=== PATIENT | male | born 1995 | race Two or more races ===

== ENCOUNTER 2020-05-16 14:25 | Inpatient (IN) | payer OTHER ==
--- NOTE | 2020-05-16 14:56 | BHS.RME ---
Substance Use & Tx History - Substance Use History Heroin Substance amount: 3 bags Frequency of use: Daily Substance route: Inhalation (ex: sniffing or snorting) Date of Last Use: 05/15/20 Xanax Substance amount: 2 x 2 mg Frequency of use: Less than 3 times per week Substance route: Oral Date of Last Use: 03/17/20 Marijuana/Hashish Substance amount: 2 joints Frequency of use: Daily Substance route: Smoking Date of Last Use: 05/09/20 Nicotine Substance amount: 3 cigs Frequency of use: Daily Substance route: Smoking Date of Last Use: 05/16/20 - Last Treatment Date of last treatment: [facility] visit Physical/Psych/Mental Status - Behavior General Behavior: Decreased activity Eye Contact: Normal - Cooperativeness Cooperativeness: Cooperative - Thinking Thought Processes: Tight Thought content: Future oriented - Physical Health Problems Is patient presently having any pain?: No Does patient presently have any injuries (include location): No Does patient currently have a fever: No COWS - Scale Resting Pulse: 0= [place] 80 or Below (Recommend Rehab admit, rapid COVID) Sweatin= No chills or Flushing Restless Observation: 0= Sits Still Pupil Size: 0= Normal to Room Light Bone or Joint Aches: 0= None Runny Nose/ Eye Tearin= None GI Upset > 30mins: 0= None Tremor Observation: 0= None Yawning Observation: 0= None Anxiety or Irritability: 1=Feels Anxious/Irritable Goose Flesh Skin: 0=Smooth Skin COWS Score: 1
[2020-05-16 17:44] VITALS: BMI 29.2
--- NOTE | 2020-05-16 17:49 | HP ---
CIWA Score - Admission Criteria OASAS Guidelines: Admission for Medically Managed Detox: Requires at least one of the followin. CIWA greater than 12 2. Seizures within the past 24 hours 3. Delirium tremens within the past 24 hours 4. Hallucinations within the past 24 hours 5. Acute intervention needed for co occurring medical disorder 6. Acute intervention needed for co occurring psychiatric disorder 7. Severe withdrawal that cannot be handled at a lower level of care (continued vomiting, continued diarrhea, abnormal vital signs) requiring intravenous medication and/or fluids 8. Admission ROS S - HPI Chief Complaint: Seeking admission to Rehab. Allergies/Adverse Reactions: Allergies Allergy/AdvReac Type Severity Reaction Status Date / Time No Known Allergies Allergy Verified 05/16/20 15:04 History of Present Illness: 24 years old male with a history of heroin, Xanax and marijuana dependence is seeking admission to Rehab. This is his first admission to [facility] and patient reports prior admission to [facility]. He denies medical history, psych. history and suicidal ideation at this time. His urine is positive for Buprenorphine but he reports that he bought that from the street. His SARS COV_2 PCR is negative Req. [id number]. Exam Limitations: No Limitations - Ebola screening Have you traveled outside of the country in the last 21 days: No Have you had contact with anyone from an Ebola affected area: No Have you been sick,other than usual withdrawal symptoms: No Do you have a fever: No - Review of Systems Constitutional: No Symptoms Reported EENT: reports: No Symptoms Reported Respiratory: reports: No Symptoms reported Cardiac: reports: No Symptoms Reported GI: reports: No Symptoms Reported : reports: No Symptoms Reported Musculoskeletal: reports: No Symptoms Reported Integumentary: reports: No Symptoms Reported Neuro: reports: No Symptoms reported Endocrine: reports: No Symptoms Reported Hematology: reports: Bleeding Diathesis Psychiatric: reports: No Sypmtoms Reported, Mood/Affect Appropiate, Orientated x3 Other Systems: Reviewed and Negative Patient History - Patient Medical History Hx Anemia: No Hx Asthma: No Hx Chronic Obstructive Pulmonary Disease (COPD): No Hx Cancer: No Hx Cardiac Disorders: No Hx Congestive Heart Failure: No Hx Hypertension: No Hx Hypercholesterolemia: No Hx Pacemaker: No HX Cerebrovascular Accident: No Hx Seizures: No Hx Diabetes: No Hx Gastrointestinal Disorders: No Hx Liver Disease: No Hx Genitourinary Disorders: No Hx Sexually Transmitted Disorders: No Hx Renal Disease (ESRD): No Hx Thyroid Disease: No Hx Human Immunodeficiency Virus (HIV): No (Negative 2019) Hx Hepatitis C: No Hx Depression: No Hx Suicide Attempt: No Hx Bipolar Disorder: No Hx Schizophrenia: No - Patient Surgical History Past Surgical History: No - PPD History Previous Implant?: Yes Documented Results: Positive w/o proof Implanted On Prior R Admission?: No PPD to be Administered?: Yes - Reproductive History Patient is a Female of Child Bearing Age (11 -55 yrs old): No (Male) - Smoking Cessation Smoking history: Current every day smoker Have you smoked in the past 12 months: Yes Aproximately how many cigarettes per day: 2 Hx Chewing Tobacco Use: No Initiated information on smoking cessation: Yes 'Breaking Loose' booklet given: 05/16/20 - Substance & Tx. History Hx Alcohol Use: No Hx Substance Use: Yes Substance Use Type: Opiates Hx Substance Use Treatment: Yes ([facility]) - Substances abused Heroin Substance route: Inhalation Frequency: Daily Amount used: 3 bags Age of first use: 17 Date of last use: 05/15/20 Alprazolam (Xanax) Substance route: Oral Frequency: 1-2 times per week Amount used: 4mg Age of first use: 17 Date of last use: 03/17/20 Marijuana/Hashish Substance route: Smoking Frequency: Daily Amount used: 2 joints Age of first use: 16 Date of last use: 05/09/20 Admission Physical Exam S - Vital Signs Vital Signs: Vital Signs - 24 hr 05/16/20 17:43 Temperature 97.5 F L Pulse Rate 58 L Respiratory 17 Rate Blood Pressure 130/78 - Physical General Appearance: Yes: Within Normal Limits HEENTM: Yes: Within Normal Limits Respiratory: Yes: Lungs Clear, Normal Breath Sounds, No Respiratory Distress Neck: Yes: Within Normal Limits Breast: Yes: Breast Exam Deferred Cardiology: Yes: Bradycardia Abdominal: Yes: Normal Bowel Sounds Genitourinary: Yes: Within Normal Limits Back: Yes: Normal Inspection Musculoskeletal: Yes: Within Normal Limits Extremities: Yes: Within Normal Limits Neurological: Yes: Within Normal Limits Integumentary: Yes: Within Normal Limits Lymphatic: Yes: Within Normal Limits - Diagnostic (1) Opioid dependence, uncomplicated Current Visit: Yes Status: Chronic (2) Cannabis dependence Current Visit: Yes Status: Chronic (3) Benzodiazepine dependence Current Visit: Yes Status: Chronic (4) Nicotine dependence Current Visit: Yes Status: Chronic Cleared for Admission S - Detox or Rehab [facility] Level of Care: Observation Bed Claeared for Rehab Admission: Yes Breathalyzer - Breathalyzer Breathalyzer: 0 Urine Drug Screen - Test Device Lot number: [id number] Expiration date: 04/03/22 - Control Is test valid?: Yes - Results Drug screen NEGATIVE: No Urine drug screen results: BUP-Suboxone Inpatient Rehab Admission - Rehab Decision to Admit Inpatient rehab admission?: Yes - Initial Determination Are CD services needed?: No Free of communicable disease: Yes Not in need of hospitalization: Yes - Rehab Admission Criteria Previous failed treatment: Yes Poor recovery environment: Yes Comorbidities: No Lacks judgement: No Patient is meeting Inpatient Rehab admission criteria:: Yes
[2020-05-16] MEDS ORDERED: MAG HYDROX/AL HYDROX/SIMETH 30 ML UNIT-DOSE CUP PO PRN (18:07)
[2020-05-16] MEDS ORDERED: IBUPROFEN 400 MG TABLET (FP) PO PRN (18:07)
[2020-05-16] MEDS ORDERED: P-EPHED 60MG/TRIPROLIDI 2.5MG TABLET PO PRN (18:07)
[2020-05-16] MEDS ORDERED: MAGNESIUM CITRATE 300 ML BOTTLE PO PRN (18:07)
[2020-05-16] MEDS ORDERED: LOPERAMIDE HCL 2 MG CAPSULE PO PRN (18:07)
[2020-05-16] MEDS ORDERED: ACETAMINOPHEN 325 MG TABLET (FP) PO PRN (18:07)
[2020-05-16] MEDS ORDERED: MAGNESIUM HYDROX 2400MG/30ML ORAL SUSPENSION 30 ML CUP PO PRN (18:07)
[2020-05-16] MEDS ORDERED: NICOTINE POLACRILEX 2 MG GUM BC PRN (18:07)
[2020-05-16] MEDS ORDERED: guaiFENesin 200 MG/10 ML 10 ML UNIT-DOSE CUPS PO PRN (18:07)
[2020-05-16] MEDS ORDERED: TUBERCULIN PPD 5 TU/0.1ML VIAL ID ONE (19:29)
[2020-05-16] MEDS: MELATONIN 5 MG TABLETS PO SCH (21:13)
[2020-05-16] MEDS: THIAMINE HCL 100 MG TABLET (FP) PO SCH (21:13)
--- NOTE | 2020-05-17 09:54 | EKG ---
Test Reason : Blood Pressure : / mmHG Vent. Rate : 046 BPM Atrial Rate : 046 BPM P-R Int : 166 ms QRS Dur : 100 ms QT Int : 422 ms P-R-T Axes : 056 053 051 degrees QTc Int : 369 ms SINUS BRADYCARDIA OTHERWISE NORMAL ECG NO PREVIOUS ECGS AVAILABLE Confirmed by ZENY BARRIOS MD ([id number]) on 05/17/2020 9:53:53 AM Referred By: Confirmed By:ZENY BARRIOS MD
[2020-05-17] MEDS: PRENATAL VITAMINS W/ FOLIC ACID TABLET (FP) PO SCH (10:17)
[2020-05-17] MEDS: NICOTINE 14 MG/24 HOURS TOPICAL PATCH TD SCH (10:17)
[2020-05-17 11:03] LABS: ALBUMIN 3.9 g/dl (3.4-5.0); BILIRUBIN,TOTAL 0.3 mg/dL (0.2-1); BLOOD UREA NITROGEN 11.8 mg/dL (7-18); CALCIUM 9.2 mg/dL (8.5-10.1); POTASSIUM 4.3 mmol/L (3.5-5.1); TOT PROT 7.2 g/dl (6.4-8.2)
[2020-05-17 11:09] LABS: HEMATOCRIT 44.4 % (35.4-49); HEMOGLOBIN 14.6 GM/dL (11.7-16.9); MCH 29.6 pg (25.7-33.7); MCHC 32.9 g/dl (32.0-35.9); MEAN CELL VOLUME 89.9 fl (80-96); MEAN PLT VOLUME 7.3 fl (7.5-11.1); PLATELET COUNT 283 K/MM3 (134-434); RBC 4.94 M/mm3 (4.00-5.60); WHITE BLOOD COUNT 5.4 K/mm3 (4.0-10.0)
[2020-05-17 11:38] LABS: SICKLE CELL SCREEN NEGATIVE (NEGATIVE)
--- NOTE | 2020-05-17 16:31 | PN ---
[facility] Progress Note Note: Pt is a 24 y/o male admitted to rehab from [facility]. Pt reports he took street suboxone for only one week, last was 4 mg yesterdaynd took heroin 2-3 bags on 05/15/20. Reports he was referred to [facility] from [facility]. States he has PCP Dr. Chang Mcqueen I [place], [place]. Pt's counselor requested to see pt who may benefit from Suboxone MAT. Surgical Scrub Technician met with pt who pt declined stating "I want to be all clean because I wanna go to [employer] so I can work". However, pt requested one or two doses of Suboxone " because I'm gonna get sick". Asked pt if he is having any withdrawal sx now and pt stated "I'm not sick yet". and that's it". Vital Signs - 24 hr 05/16/20 05/16/20 05/16/20 17:43 18:30 19:21 Temperature 97.5 F L 97.5 F L 97.3 F L Pulse Rate 58 L 58 L 61 Respiratory 17 17 18 Rate Blood Pressure 130/78 130/78 121/62 O2 Sat by Pulse Oximetry (%) 05/17/20 05/17/20 06:38 12:47 Temperature 97.7 F Pulse Rate 74 Respiratory 18 Rate Blood Pressure 119/60 O2 Sat by Pulse 98 99 Oximetry (%) Laboratory Tests 05/16/20 05/17/20 05/17/20 15:15 08:00 08:00 WBC 5.4 RBC 4.94 Hgb 14.6 Hct 44.4 MCV 89.9 MCH 29.6 MCHC 32.9 RDW 13.0 Plt Count 283 MPV 7.3 L Sickle Cell Screen Negative Sodium 138 Potassium 4.3 Chloride 101 Carbon Dioxide 33 H Anion Gap 4 L BUN 11.8 Creatinine 1.0 Est GFR (CKD-EPI)AfAm 123.27 Est GFR (CKD-EPI)NonAf 106.36 Random Glucose 90 Calcium 9.2 Total Bilirubin 0.3 AST 18 ALT 26 Alkaline Phosphatase 63 Total Protein 7.2 Albumin 3.9 Syphilis Serology SARS-CoV-2 (PCR) Negative 05/17/20 08:00 WBC RBC Hgb Hct MCV MCH MCHC RDW Plt Count MPV Sickle Cell Screen Sodium Potassium Chloride Carbon Dioxide Anion Gap BUN Creatinine Est GFR (CKD-EPI)AfAm Est GFR (CKD-EPI)NonAf Random Glucose Calcium Total Bilirubin AST ALT Alkaline Phosphatase Total Protein Albumin Syphilis Serology Non-reactive SARS-CoV-2 (PCR) Alert o x 3 nad oob ambulating with steady gait extremities;no edema, skin intact. Maintain safety increase po fluids Reminded pt to follow up with nurse for any discomfort.
[2020-05-17] MEDS: MELATONIN 5 MG TABLETS PO SCH (22:03)
[2020-05-17] MEDS: THIAMINE HCL 100 MG TABLET (FP) PO SCH (22:03)
[2020-05-18 06:54] VITALS: TEMP 97.3
[2020-05-18] MEDS: NICOTINE 14 MG/24 HOURS TOPICAL PATCH TD SCH (11:00)
[2020-05-18] MEDS: PRENATAL VITAMINS W/ FOLIC ACID TABLET (FP) PO SCH (11:00)
[2020-05-18] MEDS: MELATONIN 5 MG TABLETS PO SCH (21:13)
[2020-05-18] MEDS: THIAMINE HCL 100 MG TABLET (FP) PO SCH (21:13)
[2020-05-19] MEDS: PRENATAL VITAMINS W/ FOLIC ACID TABLET (FP) PO SCH (09:34)
[2020-05-19] MEDS: NICOTINE 14 MG/24 HOURS TOPICAL PATCH TD SCH (09:34)
[2020-05-19] MEDS: THIAMINE HCL 100 MG TABLET (FP) PO SCH (22:01)
[2020-05-19] MEDS: MELATONIN 5 MG TABLETS PO SCH (22:02)
[2020-05-20 02:11] LABS: PH,URINE 6.5 (5.0-8.0); URINE APPEARANCE CLEAR; URINE BILIRUBIN NEGATIVE (NEGATIVE); URINE COLOR YELLOW; URINE GLUCOSE (UA) NEGATIVE (NEGATIVE); URINE KETONE NEGATIVE (NEGATIVE); URINE LEUK ESTERASE NEGATIVE (NEGATIVE); URINE NITRITE NEGATIVE (NEGATIVE); URINE PROTEIN NEGATIVE (NEGATIVE); URINE UROBILINOGEN 0.2 mg/dL (0.2-1.0)
[2020-05-20 08:05] VITALS: BP 130/88; PULSE 46
[2020-05-20] MEDS: PRENATAL VITAMINS W/ FOLIC ACID TABLET (FP) PO SCH (09:58)
[2020-05-20] MEDS: NICOTINE 14 MG/24 HOURS TOPICAL PATCH TD SCH (09:58)
[2020-05-20] MEDS: MELATONIN 5 MG TABLETS PO SCH (21:16)
[2020-05-20] MEDS: THIAMINE HCL 100 MG TABLET (FP) PO SCH (21:16)
[2020-05-21] MEDS: NICOTINE 14 MG/24 HOURS TOPICAL PATCH TD SCH (11:24)
[2020-05-21] MEDS: PRENATAL VITAMINS W/ FOLIC ACID TABLET (FP) PO SCH (11:24)
--- NOTE | 2020-05-21 12:02 | DS ---
[facility] Rehab Discharge Summary - [facility] Rehab Discharge Summary Admission Date: 05/16/20 Discharge Date: 05/21/20 - History Present History: Cannabis dependence, Opioid dependence, Sedative dependence Pertinent Past History: Denies - Discharge Physical Exam Vital Signs: Vital Signs Temperature 97.3 F L 05/20/20 08:03 Pulse Rate 46 L 05/20/20 08:03 Respiratory Rate 16 05/20/20 08:03 Blood Pressure 130/88 05/20/20 08:03 O2 Sat by Pulse Oximetry (%) 98 05/21/20 06:41 General:Alert o x 3, WDWN male, nad, oob ambulating with steady gait,denies s/h/i cardiac;s1 s2, rrr lungs:ctab abdomen:soft, +bs,nt,nd MSK:Active ROM, all limbs; no edema Skin:no edema, skin intact. Pertinent Admission Physical Exam Findings: Unremarkable Laboratory Tests 05/16/20 05/17/20 05/17/20 15:15 08:00 08:00 WBC 5.4 RBC 4.94 Hgb 14.6 Hct 44.4 MCV 89.9 MCH 29.6 MCHC 32.9 RDW 13.0 Plt Count 283 MPV 7.3 L Sickle Cell Screen Negative Sodium 138 Potassium 4.3 Chloride 101 Carbon Dioxide 33 H Anion Gap 4 L BUN 11.8 Creatinine 1.0 Est GFR (CKD-EPI)AfAm 123.27 Est GFR (CKD-EPI)NonAf 106.36 Random Glucose 90 Calcium 9.2 Total Bilirubin 0.3 AST 18 ALT 26 Alkaline Phosphatase 63 Total Protein 7.2 Albumin 3.9 Urine Color Urine Appearance Urine pH Ur Specific [place] Urine Protein Urine Glucose (UA) Urine Ketones Urine Blood Urine Nitrite Urine Bilirubin Urine Urobilinogen Ur Leukocyte Esterase Syphilis Serology SARS-CoV-2 (PCR) Negative 05/17/20 05/19/20 08:00 08:30 WBC RBC Hgb Hct MCV MCH MCHC RDW Plt Count MPV Sickle Cell Screen Sodium Potassium Chloride Carbon Dioxide Anion Gap BUN Creatinine Est GFR (CKD-EPI)AfAm Est GFR (CKD-EPI)NonAf Random Glucose Calcium Total Bilirubin AST ALT Alkaline Phosphatase Total Protein Albumin Urine Color Yellow Urine Appearance Clear Urine pH 6.5 Ur Specific [place] 1.014 Urine Protein Negative Urine Glucose (UA) Negative Urine Ketones Negative Urine Blood Negative Urine Nitrite Negative Urine Bilirubin Negative Urine Urobilinogen 0.2 Ur Leukocyte Esterase Negative Syphilis Serology Non-reactive SARS-CoV-2 (PCR) - Treatment Discharge Condition: Discharge condition good, Rehabilitated safely, Responded well, Outpatient referral accepted Hospital Course: Pt is a 24 y/o male with a hx of RED-opiates, sedative, cannabis admitted to rehab from [facility]. Pt reports he took street suboxone for only one week, last was 4 mg yesterday and took heroin 2-3 bags on 05/15/20. Reports he was referred to [facility] from [facility]. States he has PCP Dr. Chang Mcqueen at [place], [place]. Pt requests early voluntary discharge today to follow up with CD aftercare. Pt met with his counselor and has accepted referral to [facility] housing and [facility] [facility] program. - Medication Discharge Medications: Ambulatory Orders NK [No Known Home Medication] 05/16/20 - Medication-Assisted Treatment (MAT) Medication-Assisted Treatment (MAT): No - Discharge Instructions Diet, activity, other medical instructions: Diet:Regular Activity: oob ad faisal Other medical instructions:follow up with CD aftercare recommendations as scheduled follow up with PCP as needed. - Diagnosis (1) Benzodiazepine dependence Status: Chronic (2) Cannabis dependence Status: Chronic (3) Nicotine dependence Status: Chronic Qualifiers: Nicotine product type: cigarettes Substance use status: uncomplicated Qualified Code(s): F17.210 - Nicotine dependence, cigarettes, uncomplicated (4) Opioid dependence, uncomplicated Status: Chronic - Follow-up Referral Minutes to complete discharge: 20 - AMA Did Patient Leave Against Medical Advice: No Additional Comments: Pt reports he has Narcan nasal spray and declined Rx for same today.
== END 2020-05-21 09:15 | disposition home or self-care (01) | DRG 772 ==
LOC: YASAS 14:25 → Y5N 18:20
PROVIDERS: ADMIT Allergy & Immunology; ATTEND Allergy & Immunology
PROC: HZ42ZZZ Group Counseling for Substance Abuse Treatment, Cognitive-Behavioral (ICD-10-PCS; principal; 2020-05-16)
DX: F11.20 Opioid dependence, uncomplicated (principal); F13.20 Sedative, hypnotic or anxiolytic dependence, uncomplicated; F12.20 Cannabis dependence, uncomplicated; F17.210 Nicotine dependence, cigarettes, uncomplicated
CPT/HCPCS: 36415; 80053; 81003; 85027; 85660; 86780; 93005; 93010